=== PATIENT | female | born 1970 | race Caucasian/White ===

== ENCOUNTER → 2017-07-10 | Emergency (ER) | payer OTHER ==
[~2017-07-10] VITALS: Ht 177.8 cm; Wt 70.5 kg
[~2017-07-10] MED LIST: ALEVE PM CAPLE1 EACH PO; ALEVE220 M1 PO; CIPRO 500MG TA500 MG PO; NUVARING VAGIN1 EACH VG; PERCOCET 325 MG1 TA2 PO; ZOFRAN ODT8 M1 PO
[2017-07-10 21:50] LABS: BASO # 0.1 (0.02-0.10); EOS # 0.2 (0.04-0.40); EOS % 3.2 % (1.0-5.0); HEMATOCRIT 40.5 % (37.0-47.0); HEMOGLOBIN 13.5 g/dL (12.5-16.0); MEAN CELL VOLUME 93 fl (78-100); MEAN CORPUSCULAR HEMOGLOBIN 31 pg (27-31); MEAN CORPUSCULAR HGB CONC 33 g/dL (33-37); MEAN PLATELET VOLUME 10.7 fl (7.4-10.4); MONO # 0.5 (0.20-0.80); NEU # 4.7 (1.40-6.50); PLATELET COUNT 307 K/mm3 (130-400); RED BLOOD COUNT 4.35 M/mm3 (4.10-5.30); RED CELL DISTRIBUTION WIDTH 12.7 % (11.5-14.5); WHITE BLOOD COUNT 7.5 K/mm3 (4.8-10.8)
[2017-07-10 22:18] LABS: LIPASE 131 U/L (23-300)
[2017-07-10 22:22] LABS: BUN/CREATININE RATIO 20.6 (6.0-26.0); CALCIUM 8.9 mg/dL (8.4-10.2); POTASSIUM 3.7 mmol/L (3.6-5.0); TOTAL BILIRUBIN 0.3 mg/dL (0.2-1.3); TOTAL PROTEIN 7.4 g/dL (6.3-8.2)
[2017-07-10 23:39] LABS: URINE APPEARANCE CLOUDY; URINE COLOR YELLOW
[2017-07-10 23:40] LABS: URINE BILIRUBIN NEGATIVE (NEGATIVE); URINE BLOOD NEGATIVE (NEGATIVE); URINE GLUCOSE NEGATIVE (NEGATIVE); URINE KETONE 1+ (NEGATIVE); URINE LEUKOCYTE ESTERASE TRACE (NEGATIVE); URINE NITRATE POSITIVE (NEGATIVE); URINE PROTEIN(semi-quant) TRACE mg/dL (NEGATIVE); URINE UROBILINOGEN NORMAL (NORMAL)
[2017-07-10 23:41] LABS: URINE MUCUS PRESENT (NOT PRESENT)
[2017-07-11 03:22] VITALS: BP 95/53
== END ==
LOC: ED 21:12
PROVIDERS: Nurse Practitioner Family
DX: N10 Acute pyelonephritis (principal); R11.2 Nausea with vomiting, unspecified
CPT/HCPCS: J0744; J1885; J2270; J2405; J2550; J7030

== ENCOUNTER 2020-07-07 19:47 | Emergency (ER) | payer BC ==
[2020-07-07] MEDS ORDERED: CEPHALEXIN500 M2 PO (21:03)
[2020-07-07 21:14] VITALS: BP 126/87
== END 2020-07-07 21:14 | disposition home or self-care (01) ==
LOC: ED 19:47
DX: S01.511A Laceration without foreign body of lip, initial encounter (principal); W55.12XA Struck by horse, initial encounter; Y92.009 Unspecified place in unspecified non-institutional (private) residence as the place of occurrence of the external cause